=== PATIENT | female | born 1950 | race Caucasian/White ===

== ENCOUNTER → 2020-11-10 | Outpatient (CLI) | payer MEDICARE ==
--- NOTE | 2020-11-10 12:27 | REP ---
INDICATION: RT CAROTID BRUIT COMPARISON: None. TECHNIQUE: Real-time ultrasound evaluation and duplex Doppler interrogation of the extracranial carotid vasculature is performed. FINDINGS: Antegrade flow is observed in both vertebral arteries. The left vertebral artery is larger than the right.. Right carotid: The right common carotid artery shows diffuse intimal thickening but is otherwise unremarkable. There ismild mixed plaquing in the right carotid bulb and proximal ICA on two-dimensional scanning. Color flow and spectral Doppler interrogation are unremarkable on the right. Velocity chart right carotid: Right CCA PSV: 81 cm/S Right ICA PSV: 57 cm/S Right ICA EDV: 14 cm/S Right ECA PSV: 38 cm/S Right ICA/CCA ratio: 0.7 Left carotid: The left common carotid artery shows diffuse intimal thickening but is otherwise unremarkable. There is mild mixed plaquing in the left carotid bulb and proximal ICA on two-dimensional scanning. Color flow and spectral Doppler interrogation are unremarkable on the left. Velocity chart left carotid: Left CCA PSV: 57 cm/S Left ICA PSV: 43 cm/S Left ICA EDV: 14 cm/S Left ECA PSV: 29 cm/S Left ICA/CCA ratio: 0.8 IMPRESSION: Less than 50% category narrowing in the right internal carotid artery by Doppler velocity criteria. Less than 50% category narrowing in the left ICA by Doppler velocity criteria. 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 <Electronically signed by Bashir Harmon > 11/10/20 [id number]
== END ==
LOC: M RAD 10:45
PROVIDERS: ATTEND Internal Medicine Cardiovascular Disease
DX: R06.89 Other abnormalities of breathing (principal)